=== PATIENT | male | born 1985 | race Caucasian/White ===

== ENCOUNTER 2022-02-18 10:36 | Emergency (ER) | payer OTHER ==
[~2022-02-18] VITALS: Ht 182.9 cm; Wt 80.0 kg
[2022-02-18 10:55] VITALS: BP 160/84
== END 2022-02-18 12:45 | disposition home or self-care (01) ==
LOC: ER 10:36
DX: F20.9 Schizophrenia, unspecified (principal); Z59.00 Homelessness unspecified
CPT/HCPCS: 99283